=== PATIENT | female | born 1995 | race Caucasian/White ===

== ENCOUNTER → 2022-03-01 13:50 | Outpatient (CLI) | payer OTHER, SELFPAY ==
--- NOTE | ~2022-03-01 | MR_ITS ---
EXAMINATION: MR knee RT wo con DATE: 03/01/2022 14:43 INDICATION: Chronic right knee pain TECHNIQUE: Magnetic resonance imaging (MRI) of the right knee was performed without intravenous contr ast. Sequences included coronal PD-weighted FSE, coronal PD-weighted FS FSE, sagittal T2-weighted FS E, sagittal PD-weighted FS FSE and axial PD weighted fat saturated FSE. COMPARISON: None. FINDINGS: Medial compartment: Medial meniscus is normal. Articular cartilage is normal. Lateral compartment: Lateral meniscus is normal. Articular cartilage is normal. Patellofemoral compartment: Full/near full-thickness chondral fissuring without degenerative subchondral changes at the patellar apical ridge and medial facet. Trochlear cartilage appears normal. Ligaments and tendons: Anterior and posterior cruciate ligaments are normal. The medial collateral ligament and fibular gonzalez ateral ligament complex are normal. The extensor mechanism is normal. The visualized medial and later al hamstring tendons as well as the iliotibial band are normal. Fluid: Physiologic amount of fluid in the joint space. No loose osteochondral bodies identified. Osseous/other: Normal marrow signal. No fracture or pathologic marrow replacing process. IMPRESSION: 1. Mild patellofemoral osteoarthritis with deep chondral fissuring at the patellar apical ridge and m edial facet. Reviewed, dictated and finalized at location A. [employer] RIVETING MACHINE OPERATOR IMPRESSION: 1. Mild patellofemoral osteoarthritis with deep chondral fissuring at the palumbo lar apical ridge and medial facet.
== END ==
PROVIDERS: PCP Orthopaedic Surgery; Visit Provider Orthopaedic Surgery
DX: M17.11 Unilateral primary osteoarthritis, right knee (principal)
CPT/HCPCS: 73721